=== PATIENT | female | born 1995 | race Caucasian/White ===

== ENCOUNTER 2020-09-20 10:48 | Inpatient (IN) | payer OTHER ==
[2020-09-20] MEDS ORDERED: CARBOPROST TROMETHAMINE 250 MCG/ML 1 ML AMP IM PRN (11:11)
[2020-09-20] MEDS ORDERED: TERBUTALINE 1 MG/ML VIAL SQ PRN (11:11)
[2020-09-20] MEDS ORDERED: OXYTOCIN 10 UNIT/ML 1 ML VIAL IM PRN (11:11)
[2020-09-20] MEDS ORDERED: METHYLERGONOVINE 0.2 MG/ML 1 ML AMP IM PRN (11:11)
[2020-09-20] MEDS ORDERED: LIDOCAINE 0.5% (PF) 5 MG/ML (50 ML SDV) SQ PRN (11:11)
[2020-09-20] MEDS ORDERED: BUTORPHANOL 1 MG/ML 1 ML VIAL IV PRN (11:12)
[2020-09-20] MEDS: LACTATED RINGERS 1,000 ML IV SCH ×2 (11:45→12:46)
[2020-09-20 12:03] LABS: Basophils % (A) 0 %; Eosinophils # (A) 0.2 k/uL (0-0.7); Eosinophils % (A) 1 %; HGB 11.8 gm/dL (11.4-16.0); Lymphocytes # (A) 1.5 k/uL (1.0-4.8); Lymphocytes % (A) 12 %; MCH 29.2 pg (25.0-35.0); MCHC 33.8 g/dL (31.0-37.0); MCV 86.2 fL (80.0-100.0); Mean Platelet Volume 9.6; Monocytes # (A) 0.5 k/uL (0-1.0); Monocytes % (A) 4 %; Neutrophils # (A) 10.5 k/uL (1.3-7.7); Neutrophils % (A) 83 %; Platelet Count 156 k/uL (150-450); RBC 4.06 m/uL (3.80-5.40); RDW 14.1 % (11.5-15.5); WBC 12.8 k/uL (3.8-10.6)
[2020-09-20] MEDS ORDERED: SODIUM CHLORIDE 0.9% 100 ML BAG ONE (13:14)
[2020-09-20] MEDS ORDERED: fentaNYL (PF) 50 MCG/ML 5 ML AMP ONE (13:14)
[2020-09-20] MEDS ORDERED: ROPIVACAINE 5MG/ML 20ML VIAL ONE (13:14)
[2020-09-20] MEDS ORDERED: OXYTOCIN 30 UNITS/500 ML NS 30 UNIT in SALINE 1 500ML.BAG IV SCH ×2 (14:15→15:45)
[2020-09-20] MEDS ORDERED: diphenhydrAMINE 25 MG CAP PO PRN (15:32)
[2020-09-20] MEDS ORDERED: diphenhydrAMINE 50 MG CAP PO PRN (15:32)
[2020-09-20] MEDS ORDERED: diphenhydrAMINE 50 MG/ML 1 ML VIAL IVP PRN ×2 (15:32)
[2020-09-20] MEDS ORDERED: LANOLIN CREAM 5 GM TUBE TOPICAL PRN (15:32)
[2020-09-20] MEDS ORDERED: ZOLPIDEM 5 MG TAB PO PRN (15:32)
[2020-09-20] MEDS ORDERED: HYDROCORTISONE 2.5% RECTAL CREAM 30 GM TUBE RECTAL PRN (15:32)
[2020-09-20] MEDS ORDERED: ACETAMINOPHEN TAB 325 MG TAB PO PRN (15:32)
[2020-09-20] MEDS ORDERED: SIMETHICONE 80 MG CHEWABLE PO PRN (15:32)
[2020-09-20] MEDS ORDERED: BENZOCAINE/MENTHOL SPRAY 1 GM/SPRAY AEROSOL TOPICAL PRN (15:32)
[2020-09-20] MEDS: IBUPROFEN 600 MG TAB PO SCH (15:58)
[2020-09-21] MEDS: SENNOSIDES-DOCUSATE SODIUM 1 EACH TAB PO SCH ×2 (00:40→07:41)
[2020-09-21 00:49] VITALS: TEMP 98.1
[2020-09-21] MEDS: IBUPROFEN 600 MG TAB PO SCH ×3 (04:39→11:03)
[2020-09-21 08:17] LABS: Basophils % (A) 0 %; Eosinophils # (A) 0.2 k/uL (0-0.7); Eosinophils % (A) 1 %; HCT 28.8 % (34.0-46.0); Lymphocytes # (A) 2.5 k/uL (1.0-4.8); Lymphocytes % (A) 22 %; MCHC 34.5 g/dL (31.0-37.0); Mean Platelet Volume 9.8; Monocytes # (A) 0.8 k/uL (0-1.0); Monocytes % (A) 8 %; Neutrophils # (A) 7.5 k/uL (1.3-7.7); Neutrophils % (A) 67 %; Platelet Count 136 k/uL (150-450); RBC 3.31 m/uL (3.80-5.40); RDW 14.4 % (11.5-15.5); WBC 11.2 k/uL (3.8-10.6)
[2020-09-21 08:18] LABS: HGB 9.9 gm/dL (11.4-16.0)
[2020-09-21 08:19] VITALS: BP 101/55; PULSE 88; RESP 15
--- NOTE | 2020-09-21 08:51 | P.HPOB ---
History of Present Illness H&P Date: 09/21/20 Chief Complaint: Labor 24-year-old presented at 40 weeks and 4 days in active labor. Her cervix was 4 cm dilated, her percent effaced, and -2 station. She is timothy every 2-3 minutes. heart tones 140 with moderate variability and reactive. Review of Systems All systems: negative Constitutional: Denies chills, Denies fever Eyes: denies blurred vision, denies pain Ears, nose, mouth and throat: Denies headache, Denies sore throat Cardiovascular: Denies chest pain, Denies shortness of breath Respiratory: Denies cough Gastrointestinal: Denies abdominal pain, Denies diarrhea, Denies nausea, Denies vomiting Genitourinary: Denies dysuria, Denies hematuria Musculoskeletal: Denies myalgias Integumentary: Denies pruritus, Denies rash Neurological: Denies numbness, Denies weakness Psychiatric: Denies anxiety, Denies depression Endocrine: Denies fatigue, Denies weight change Past Medical History Past Medical History: Asthma History of Any Multi-Drug Resistant Organisms: None Reported Past Surgical History: No Surgical Hx Reported Past Anesthesia/Blood Transfusion Reactions: No Reported Reaction Past Psychological History: No Psychological Hx Reported, Depression Smoking Status: Never smoker Past Alcohol Use History: None Reported Past Drug Use History: None Reported - Past Family History Father Family Medical History: Hypertension Medications and Allergies Home Medications Medication Instructions Recorded Confirmed Type Pnv No.95/Ferrous Fum/Folic AC 1 each PO DAILY 09/20/20 09/20/20 History [ Multivitamin Tablet] Allergies Allergy/AdvReac Type Severity Reaction Status Date / Time No Known Allergies Allergy Verified 09/20/20 10:56 Exam Osteopathic Statement: *. No significant issues noted on an osteopathic structural exam other than those noted in the History and Physical/Consult. Vital Signs Temp Pulse Resp BP Pulse Ox 09/21/20 08:00 98.1 F 88 15 101/55 98 09/21/20 00:00 98.1 F 95 18 109/69 95 09/20/20 20:00 98.2 F 90 18 109/63 96 09/20/20 17:15 93 17 114/64 09/20/20 16:45 93 17 121/70 09/20/20 16:15 98.7 F 96 18 123/81 09/20/20 16:00 88 17 119/68 09/20/20 15:45 100 18 116/78 09/20/20 15:30 103 H 18 124/74 09/20/20 15:15 98.3 F 101 H 18 124/71 09/20/20 10:57 97.0 F L 121 H 18 128/88 Intake and Output 09/20/20 09/21/20 09/21/20 22:59 06:59 14:59 Intake Total 767.883 Output Total 150 Balance 617.883 Intake: Intake, IV Titration 167.883 Amount Oxytocin 30 Units/500 ml 167.883 Ns 30 unit In Saline 1 500ml.bag @ Per Protocol IV .Q0M TOI Rx#:[id number] Oral 600 Output: Estimated Blood Loss 150 Other: # Voids 1 1 Heart: Regular rate and rhythm Lungs: Clear to auscultation bilaterally Abdomen: Soft, nontender Extremities: Negative Homans sign Results Result Diagrams: 09/21/20 07:25 Abnormal Lab Results - Last 24 Hours (Table) 09/20/20 09/21/20 Range/Units 11:45 07:25 WBC 12.8 H 11.2 H (3.8-10.6) k/uL RBC 3.31 L (3.80-5.40) m/uL Hgb 9.9 L D (11.4-16.0) gm/dL Hct 28.8 L (34.0-46.0) % Plt Count 136 L (150-450) k/uL Neutrophils # 10.5 H (1.3-7.7) k/uL Assessment and Plan (1) Normal labor Current Visit: Yes Status: Acute Code(s): O80 - ENCOUNTER FOR FULL-TERM UNCOMPLICATED DELIVERY; Z37.9 - OUTCOME OF DELIVERY, UNSPECIFIED SNOMED Code(s): 16349771 Plan: 1. Admit to family place 2. Expectant management 3. Anticipate normal vaginal delivery
--- NOTE | 2020-09-21 08:52 | P.PROBDLV ---
Vaginal Delivery Note - . Vaginal Delivery Note: 24-year-old presented at 40 weeks and 4 days in active labor. Her cervix was 4 cm dilated, her percent effaced, and -2 station. She is timothy every 2-3 minutes. heart tones 140 with moderate variability and reactive. Amniotomy was performed at 12:03 PM, clear fluid noted. She then got an epidural. Her cervix was completely dilated at 4 teen 44. She pushed, and delivered a viable male over intact perineum under epidural anesthesia at 1506. Head delivered OA, anterior shoulder delivered gentle downward guidance. A posterior shoulder and rest of body. Nose and mouth bulb suctioned, cord To cut, infant placed mother's abdomen. Apgars 7, 9, weight 7 lbs. 14 oz. Placenta delivered spontaneous, intact with three-vessel cord at 1508. Vagina, cervix, perineum inspected. Second-degree laceration of the left labia was repaired with 3-0 Vicryl. Estimated blood loss 150 mL. Mother and baby in stable condition.
--- NOTE | 2020-09-21 08:54 | P.DS ---
Providers Date of admission: 09/20/20 11:02 Expected date of discharge: 09/21/20 Attending physician: Molly Hilton Primary care physician: Stated None - Discharge Diagnosis(es) (1) Normal labor Current Visit: Yes Status: Resolved (2) Normal vaginal delivery Current Visit: Yes Status: Acute Hospital Course: Patient presented in active labor. She underwent a normal vaginal delivery. course uncomplicated. She'll be discharged home day #1 in stable condition to follow-up with me in 6 weeks. Plan - Discharge Summary New Discharge Prescriptions: New Ibuprofen [Motrin] 600 mg PO Q6H #40 tab No Action Pnv No.95/Ferrous Fum/Folic AC [ Multivitamin Tablet] 1 each PO DAILY Discharge Medication List Pnv No.95/Ferrous Fum/Folic AC [ Multivitamin Tablet] 1 each PO DAILY 09/20/20 [History] Ibuprofen [Motrin] 600 mg PO Q6H #40 tab 09/21/20 [Rx] Follow up Appointment(s)/Referral(s): Molly Hilton DO [Doctor of Osteopathic Medicine] - 6 Weeks Discharge Disposition: HOME SELF-CARE
== END 2020-09-21 16:10 | disposition home or self-care (01) | DRG 807 ==
LOC: FBPOP 10:48 → 4FBP 11:02
PROVIDERS: ADMIT Obstetrics & Gynecology; ATTEND Obstetrics & Gynecology
PROC: 10E0XZZ Delivery of Products of Conception, External Approach (ICD-10-PCS; principal; 2020-09-20)
PROC: 0UQMXZZ Repair Vulva, External Approach (ICD-10-PCS; 2020-09-20)
DX: O70.1 Second degree perineal laceration during delivery (principal); Z37.0 Single live birth; Z3A.40 40 weeks gestation of pregnancy
CPT/HCPCS: 59025; 85025; 86850; 86900; 86901; 99213